=== PATIENT | male | born 2000 | race Hispanic/Latino ===

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

== ENCOUNTER 2024-04-09 12:00 | Emergency (ER) | payer MEDICAID ==
[~2024-04-09] VITALS: Ht 180.3 cm; Wt 122.5 kg
--- NOTE | 2024-04-09 12:07 | ERN ---
ED Note History of Present Illness Stated Complaint: LEFT FOOT CELLULITIS, POSSIBLE BUG BITE Chief Complaint: Cellulitis Time Seen by MD: 12:02 Dictation: PATIENT IS A 23-YEAR-OLD MALE HERE WITH COMPLAINTS OF LEFT 5TH TOE PAIN TENDERNESS ONSET 3-4 DAYS PRIOR TO ARRIVAL. NO FEVER NO CHILLS DENIES BEING A DIABETIC., DOES STATE HE THINKS HE HAS GOUT. HAS NOT BEEN TO SEE HIS PRIMARY CARE DOCTOR AND HAS NOT TAKEN ANYTHING PRIOR TO ARRIVAL FOR PAIN. Allergies: Coded Allergies: No Known Allergies (Unverified Allergy, Unknown, 04/09/24) Home Meds Active Scripts Ibuprofen (Ibuprofen 800 mg Tab) 800 Mg Tab, 800 MG PO Q8H PRN for fever or pain, #30 TAB 0 Refills Prov:CATY DRUMMOND REPRODUCTION PRODUCTION MANAGER 04/09/24 Past Medical History Past Medical History: No Pertinent History Surgical History: None RN Note Reviewed/Agreed w/PFSH: Yes Review of System Dictation CONSTITUTIONAL: NEGATIVE EXCEPT FOR HPI HEAD/FACE: NEGATIVE EXCEPT FOR HPI EENT: NEGATIVE EXCEPT FOR HPI RESPIRATORY: NEGATIVE EXCEPT FOR HPI GASTROINTESTINAL/ABDOMINAL: NEGATIVE EXCEPT FOR HPI GENITOURINARY: NEGATIVE EXCEPT FOR HPI MUSCULOSKELETAL: NEGATIVE EXCEPT FOR HPI LEFT 5TH TOE TENDERNESS INTEGUMENTARY: NEGATIVE EXCEPT FOR HPI NEUROLOGICAL/PSYCH: NEGATIVE EXCEPT FOR HPI HEMATOLOGIC/LYMPHATIC: NEGATIVE EXCEPT FOR HPI ALL SYSTEMS NEGATIVE, EXCEPT NOTED ABOVE. 13 POINT REVIEW OF SYSTEMS ASSESSED AND ALL NEGATIVE EXCEPT FOR ABOVE. Initial Vital Sign VS Vital Signs Date Time Temp Pulse Resp B/P (MAP) Pulse Ox O2 Delivery O2 Flow Rate FiO2 04/09/24 12:01 97.7 81 16 124/78 98 Room Air 0 04/09/24 13:41 21 Physical Exam Dictation VITAL SIGNS REVIEWED GENERAL APPEARANCE: ALERT, ORIENTED X 3, MILD ACUTE DISTRESS, WELL DEVELOPED, NOURISHED. MORBIDLY OBESE HEAD AND FACE: NON-TRAUMATIC. EYES: PERRL, PINK CONJUNCTIVAS, EYELID NO TRAUMA, ANTERIOR CHAMBER WITH ARCUS SENILIS. EARS: PINNAS INTACT AND NO SIGNS OF TRAUMA OR ERYTHEMA EAR CANALS CLEAR AND NO DISCHARGE TM NO ERYTHEMA NOSE: NO DISCHARGE, NO BLEEDING. OROPHARYNX: MOUTH NORMAL, TONGUE PINK, PHARYNX CLEAR,NO ERYTHEMA, TONSILS NO EXUDATES, NO ABSCESSES NOTED, MUCOUS MEMBRANE MOIST NECK: SUPPLE, NON-TENDER, NO THYROMEGALY, NO MASSES, NO JVD, NO BRUITS BREAST:DEFERRED CHEST:NO TENDERNESS, NO CREPITUS, NO PARADOXICAL MOVEMENT, NO RETRACTIONS LUNGS:CLEAR, WELL-VENTILATED, SYMMETRIC, NO RALES, NO WHEEZING, NO RHONCHI, NO STRIDOR, GOOD BREATH SOUNDS BILATERALLY HEART: REGULAR RATE, REGULAR RHYTHM, NO MURMUR, NO GALLOPS VASCULAR: NO PERIPHERAL EDEMA, ABDOMEN: SOFT, POSITIVE BOWEL SOUNDS, NONDISTENDED, NO GUARDING, NONTENDER, NO REBOUND, NO MASSES NO HEPATOMEGALY, NO SPLENOMEGALY, NO STONE'S SIGN, NO HERNIAS. RECTAL: DEFERRED GENITAL: DEFERRED NEUROLOGICAL: NORMAL SPEECH, MOTOR FUNCTION INTACT, SENSORY FUNCTION INTACT MUSCULOSKELETAL: NECK NONTENDER, FULL RANGE OF MOTION, BACK NONTENDER, FULL RANGE OF MOTION, EXTREMITIES: MILD TENDERNESS TO METATARSAL JOINT LEFT 5TH TOE NO ERYTHEMA NO SWELLING SKIN: COLOR PINK, DRY, NO TURGOR, NO RASH, NO LACERATIONS, NO ABRASIONS, NO CONTUSIONS. LYMPHATIC: DEFERRED Results (Laboratory/Radiology) Laboratory/Radiology Laboratory Tests Test 04/09/24 12:54 White Blood Count 11.5 K/uL (4.8-10.8) H Red Blood Count 5.25 MIL/uL (4.50-6.20) Hemoglobin 16.0 g/dL (14.0-18.0) Hematocrit 48.3 % (42-54) Mean Corpuscular Volume 92.0 fL (80-100) Mean Corpuscular Hemoglobin 30.5 pg (27.0-33.0) Mean Corpuscular Hemoglobin Concent 33.1 g/dL (32.0-36.0) Red Cell Distribution Width 12.7 % (11.0-15.5) Platelet Count 245 K/uL (130-400) Mean Platelet Volume 9.3 fL (7.5-10.5) Immature Granulocyte % (Auto) 0.3 % (0-1) Neutrophils (%) (Auto) 62.3 % (40.0-77.0) Lymphocytes (%) (Auto) 29.8 % (21.0-51.0) Monocytes (%) (Auto) 5.9 % (3.0-13.0) Eosinophils (%) (Auto) 1.4 % (0.0-8.0) Basophils (%) (Auto) 0.3 % (0.0-5.0) Neutrophils # (Auto) 7.2 K/uL (1.8-7.7) Lymphocytes # (Auto) 3.4 K/uL (1.0-4.8) Monocytes # (Auto) 0.7 K/uL (0.1-1.0) Eosinophils # (Auto) 0.16 K/uL (0.00-0.70) Basophils # (Auto) 0.04 K/uL (0.00-0.20) Absolute Immature Granulocyte (auto 0.03 K/uL (0-1) Nucleated Red Blood Cells 0.0 % (0.0-0.19) Sodium Level 142 mmol/L (136-145) Potassium Level 3.8 mmol/L (3.5-5.1) Chloride Level 104 mmol/L (101-111) Carbon Dioxide Level 35 mmol/L (21-32) H Blood Urea Nitrogen 9 mg/dL (7-18) Creatinine 0.9 mg/dL (0.5-1.3) Glomerular Filtration Rate Calc 125 mL/min (>90) Random Glucose 86 mg/dL (70-105) Uric Acid 6.6 mg/dL (2.6-7.2) Total Calcium 9.3 mg/dL (8.5-10.1) LEFT FOOT X-RAY DEMONSTRATES NO RADIOPAQUE FOREIGN BODY OR FRACTURE NOTED Labs Reviewed?: Yes ED Course ED Course Orders Procedure Category Date Status Time Foot Comp 3+Vws Lt RAD 04/09/24 Resulted 12:04 Uric Acid LAB 04/09/24 Complete 12:04 Cbc With Differential LAB 04/09/24 Complete 12:04 Basic Metabolic Panel LAB 04/09/24 Complete 12:04 Vital Signs Date Time Temp Pulse Resp B/P (MAP) Pulse Ox O2 Delivery O2 Flow Rate FiO2 04/09/24 13:41 97.9 80 16 121/76 98 Room Air* 0 21 04/09/24 12:01 97.7 81 16 124/78 98 Room Air 0 1325, LABS UNREMARKABLE NO GOUT NO INFECTION NO ELEVATED WHITE COUNT. DISCHARGED HOME WITH TOE PAIN Medical Decision Making [facility] MEDICAL DISCHARGE MAKING BASED ON X-RAY OF LEFT FOOT AND LABS TO INCLUDE URIC ACID X-RAY NEGATIVE, LABS NEGATIVE DISCHARGED HOME WITH TOE PAIN DX & DISP Disposition: Discharge Departure Impression: Primary Impression: Pain of fifth toe Condition: Stable Scripts Ibuprofen (Ibuprofen 800 mg Tab) 800 Mg Tab 800 MG PO Q8H PRN for fever or pain, #30 TAB 0 Refills Prov: CATY DRUMMOND NP 04/09/24 Additional Instructions: FOLLOW-UP WITH PRIMARY CARE PROVIDER IN 1 TO 2 DAYS. TAKE MEDICATIONS DIRECTED HERE IN THE EMERGENCY ROOM. OKAY TO CONTINUE HOME MEDICATIONS UNLESS OTHERWISE DISCUSSED DURING YOUR VISIT IN THE EMERGENCY ROOM TODAY. RETURN TO YOUR NEAREST EMERGENCY ROOM IF SYMPTOMS WORSEN OR IF THERE IS NO IMPROVEMENT. CALL 911 IF YOU NEED IMMEDIATE ASSISTANCE. TAKE TYLENOL OR MOTRIN [id number] NEEDED AND IF NO CONTRAINDICATIONS ARE PRESENT. INCREASE ORAL HYDRATION. A WOUND CULTURE OR URINE CULTURE WAS ORDERED HERE IN THE EMERGENCY ROOM DEPARTMENT PLEASE FOLLOW-UP WITH PRIMARY CARE PROVIDER AND ADVISE THEM TO GET REPEAT PORTS FROM OUR FACILITY. IF YOU HAD ANY ANGELITA WRAP/SPLINTS THAT WERE APPLIED HERE, PLEASE DO NOT REMOVE THEM UNTIL YOU SEE YOUR PRIMARY CARE OR SPECIALTY. TAKE IBUPROFEN NEEDED FOR PAIN, FOLLOW UP WITH YOUR PRIMARY CARE DOCTOR NEEDED. Referrals: TULIO BARTLETT MD (PCP) Time of Disposition: 13:27 I have reviewed the case, and I agree with, Diagnosis and Plan I was present and participated in the care of this patient alongside the resident physician. I have reviewed and personally made and improve the manage ment plan that is documented in the note by myself or the resident physician. I acknowledge full responsibility for the patient's management plan. CATY DRUMMOND NP Apr 09, 2024 12:07 PATRICIA QUAN MD Apr 09, 2024 18:21
[2024-04-09 13:05] LABS: BASOPHILS # (AUTO) 0.04 K/uL (0.00-0.20); BASOPHILS % (AUTO) 0.3 % (0.0-5.0); EOSINOPHILS # (AUTO) 0.16 K/uL (0.00-0.70); EOSINOPHILS % (AUTO) 1.4 % (0.0-8.0); HEMATOCRIT 48.3 % (42-54); IMMATURE GRANULOCYTE ABSOLUTE 0.03 K/uL (0-1); LYMPHOCYTES # (AUTO) 3.4 K/uL (1.0-4.8); LYMPHOCYTES % (AUTO) 29.8 % (21.0-51.0); MEAN CORPUSCULAR HEMOGLOBIN 30.5 pg (27.0-33.0); MEAN CORPUSCULAR HGB CONC 33.1 g/dL (32.0-36.0); MONOCYTES # (AUTO) 0.7 K/uL (0.1-1.0); MONOCYTES % (AUTO) 5.9 % (3.0-13.0); NEUTROPHILS # (AUTO) 7.2 K/uL (1.8-7.7); NEUTROPHILS % (AUTO) 62.3 % (40.0-77.0); PLATELET COUNT (AUTO) 245 K/uL (130-400); RED BLOOD CELL COUNT(AUTO) 5.25 MIL/uL (4.50-6.20); RED CELL DISTRIBUTION WIDTH 12.7 % (11.0-15.5); WHITE BLOOD COUNT (AUTO) 11.5 K/uL (4.8-10.8)
--- NOTE | 2024-04-09 13:08 | HMCIMG ---
FOOT COMP 3+VWS LT HISTORY: Pain COMPARISON: None TECHNIQUE: 3 images of left foot were obtained. FINDINGS: There is no acute displaced fracture or dislocation. IMPRESSION: 1. Findings as described above.
[2024-04-09 13:12] LABS: CREATININE 0.9 mg/dL (0.5-1.3); POTASSIUM 3.8 mmol/L (3.5-5.1); URIC ACID 6.6 mg/dL (2.6-7.2)
[2024-04-09] MEDS ORDERED: IBUP-2077 PO (13:27)
[2024-04-09 13:41] VITALS: BP 121/76; PULSE 80; RESP 16; TEMP 97.9; O2SAT 98
== END 2024-04-09 13:47 | disposition home or self-care (01) ==
LOC: EDH 12:00
DX: M79.675 Pain in left toe(s) (principal)
CPT/HCPCS: 36415; 73630; 80048; 84550; 85025; 99284